=== PATIENT | male | born 1965 | race Caucasian/White ===

== ENCOUNTER 2016-07-08 14:13 | Inpatient (IN) ==
--- NOTE | 2016-07-07 21:11 | Discharge Summary ---
<Tabatha Dimas - Last Filed: 07/07/16 21:09> Date of Encounter: 07/07/16 - Discharge Diagnosis (1) Arthritis of right hip Priority: Primary Status: Acute (2) DMII (diabetes mellitus, type 2) Priority: Secondary Status: Chronic Qualifiers: Diabetes mellitus complication status: with unspecified complications Diabetes mellitus fci insulin use: unspecified fci insulin use status Qualified Code(s): E11.8 - Type 2 diabetes mellitus with unspecified complications - Discharge Medications Home Medications: Aspirin Enteric Coated [Aspirin EC] 325 mg PO DAILY #21 tablet.dr 07/07/16 [Rx] OxyCODONE Immed Rel [Roxicodone 5 MG] 5 - 10 mg PO Q6HR PRN #40 tablet 07/07/16 [Rx] Atorvastatin [Lipitor] 40 mg PO HS 07/08/16 [History] Celecoxib [Celebrex] 200 mg PO DAILY 07/08/16 [History] GlyBURIDE 5 mg PO BID 07/08/16 [History] Metformin HCl [Glucophage] 1,000 mg PO BID 07/08/16 [History] Tramadol HCl [Ultram] 50 mg PO Q6H PRN 07/08/16 [History] Allergies/Adverse Reactions: Allergies No Known Allergies Allergy (Verified 07/08/16 14:31) Primary care physician: Mary Mcleod CNP - Patient Status Disposition: Home, Self-Care Condition: Good - Discharge Instructions Follow Up With: Tico Venegas MD [Partnered Physician] - 08/06/16 8:25 am Tabatha Dimas PAC [Physician Gas Stove Servicer Helper] - 07/17/16 1:15 pm Mary Mcleod CNP [Primary Care Provider] - - Hospital Course Hospital course: Mr. Sampson is a 51 year old male - Time Spent with Patient Total time spent providing and/or coordinating discharge services: <Tico Venegas - Last Filed: 07/11/16 07:54> Date of Encounter: 07/11/16 Time of Encounter: 07:54 - Discharge Diagnosis (1) Arthritis of right hip Priority: Primary Status: Acute (2) DMII (diabetes mellitus, type 2) Priority: Secondary Status: Chronic Qualifiers: Diabetes mellitus complication status: with unspecified complications Diabetes mellitus fci insulin use: unspecified tile and marble installer insulin use status Qualified Code(s): E11.8 - Type 2 diabetes mellitus with unspecified complications Primary care physician: Mary Mcleod CNP - Patient Status Overall status at discharge: patient is progressing back to baseline - Hospital Course Hospital course: Mr. Sampson is a 51 year old male The patient had an uneventful postoperative course. They received antibiotics and physical therapy and were discharged in stable condition. There will follow -up in the office in 2 weeks. Aspirin DVT prophylaxis - Time Spent with Patient Total time spent providing and/or coordinating discharge services:
--- NOTE | 2016-07-08 14:31 | Anesthesia Evaluation PreOp ---
Date of Encounter: 07/08/16 Time of Encounter: 14:29 - Past History Planned Operation: Right Total Hip Arthroplasty Cardiac History: Hyperlipidemia Pulmonary History: Denies Any Significant HX C D STILL OPERATOR History: Denies Any Significant HX Other Medical History: Diabetes Type II Anesthesia History: Past Anesthesia (no prior surgery) Alcohol Use: occasionally Drug use: none Medications and Allergies Aspirin Enteric Coated [Aspirin EC] 325 mg PO DAILY #21 tablet. 07/07/16 [Rx] OxyCODONE Immed Rel [Roxicodone 5 MG] 5 - 10 mg PO Q6HR PRN #40 tablet 07/07/16 [Rx] Allergies No Known Allergies Allergy (Unverified 06/27/16 13:50) - Meds/Allergy Pre-op Review Medications Reviewed: Yes Allergies Reviewed: Yes Beta Blockers on Current Med List: No Anesthesia Results - Labs Laboratory Tests 06/27/16 06/27/16 06/27/16 14:00 14:00 14:00 WBC 8.4 Hgb 15.5 Hct 44.8 Plt Count 356 PT 11.3 INR 1.0 APTT 33.8 Sodium 138 Potassium 3.6 BUN 9 Creatinine 0.72 - Imaging EKG: report reviewed (06/27/2016 SR, marked LAD, moderate IV conduction delay) Anesthesia Exam O2 Sat Height 1.75 m Height 1.75 m Weight 102.058 kg Weight 102.058 kg O2 Sat by Pulse Oximetry 96 Vital Signs Temp Pulse Resp BP Pulse Ox 98.1 F 120 18 137/83 96 07/08/16 14:44 07/08/16 14:44 07/08/16 14:44 07/08/16 14:44 07/08/16 14:44 Blood glucose: 252 Height: 5'9'' Weight: 225 lbs NPO (# of Hours): 8 Pain Scale: 0 Pain Scale Used: Numeric (1 - 10) - HEENT Pupil (Motor): EOMI Mallampati: II Teeth: Normal (broken molars right upper and left lower) Oral Opening: Greater than 3 - C D STILL OPERATOR LOC: Oriented C D STILL OPERATOR Motor: Normal RUE, Normal LUE, Normal RLE, Normal LLE, Normal Face C D STILL OPERATOR Sensory: Normal: RUE, LUE, RLE, LLE, Face - Cardiac Rhythm: Regular Murmur: None - Pulmonary Breath Sounds: bilateral Clear Respiratory Effort: Symmetrical Anesthesia Assess/Plan ASA Score: 2 Modified Wells Scale for Level of Consciousness: Cooperative, oriented, and tranquil Anesthetic Plan: General Monitoring Plan: Standard Monitors Recovery Plan: PACU
[2016-07-08] MEDS ORDERED: CeFAZolin Pre 2,000 MG/100 ML 2,000 MG/100 ML BAG IVPB ONE (14:38)
[2016-07-08] MEDS ORDERED: Ringers Solution, Lactated 1,000 ML IVC SCH ×2 (14:45→15:00)
[2016-07-08] MEDS ORDERED: D5% in Water 1,000 ML IVC PRN ×2 (15:00→20:33)
[2016-07-08] MEDS ORDERED: Ondansetron 4 MG/2 ML VIAL IVP PRN ×3 (15:00→20:33)
[2016-07-08] MEDS ORDERED: MOM Conc 10 ML UD.LIQ PO PRN ×2 (15:00→20:33)
[2016-07-08] MEDS ORDERED: *HR* OxyCODONE Immed Rel 5 MG TABLET PO PRN ×3 (15:00→20:33)
[2016-07-08] MEDS ORDERED: *HR* Dextrose 50 % in Water (Syg) 50 ML SYRINGE IVP PRN ×2 (15:00→20:33)
[2016-07-08] MEDS ORDERED: Sennosides 8.6 MG TABLET PO PRN ×2 (15:00→20:33)
[2016-07-08] MEDS ORDERED: Temazepam 15 MG CAPSULE PO PRN ×2 (15:00→20:33)
[2016-07-08] MEDS ORDERED: Acetaminophen 325 MG TABLET PO PRN ×2 (15:00→20:33)
[2016-07-08] MEDS ORDERED: Naloxone 0.4 MG/ML INJ IVP PRN ×2 (15:00→20:33)
[2016-07-08] MEDS ORDERED: Dextrose Gel 15 GM PO PRN ×4 (15:00→20:33)
[2016-07-08] MEDS ORDERED: *HR* HYDROmorphone (PF) 1 MG/ML SYRINGE IVP PRN (15:00)
[2016-07-08] MEDS ORDERED: Insulin LISPRO 300 UNITS/3 ML VIAL SQ SCH (16:30)
[2016-07-08] MEDS ORDERED: Ascorbic Acid 500 MG TABLET PO SCH (17:00)
--- NOTE | 2016-07-08 17:20 | History & Physical Report ---
Date of Encounter: 07/08/16 Time of Encounter: 17:19 24 Hour HP Update - Instructions Instructions: If the History and Physical is less than 30 days old and was completed prior to A.M. admission and or procedure and has NOT been updated on calendar day of procedure please complete this update prior to performing procedure. - Update Patient reports changes in Medical Condition: No Changes in examination, assessment, or condition: No Changes in Medication: No Preop tests/diagnostics Reviewed: Yes Surgery Remains Indicated: Yes Consent for Planned Operative Procedure(s) Verified: Yes - Pre-Operative Checklist Preoperative Checklist Indicated: No Prophylactic Antibiotic Ordered: Yes Is VTE Prophylaxis Indicated?: Yes
[2016-07-08] MEDS ORDERED: Lidocaine -MPF 2% 2 ML VIAL ONE (18:01)
[2016-07-08] MEDS ORDERED: *HR* Midazolam HCl 2 MG/2 ML VIAL ONE ×2 (18:01)
[2016-07-08] MEDS ORDERED: *HR* Propofol 200 MG/20 ML VIAL IVP ONE ×2 (18:01→18:51)
[2016-07-08] MEDS ORDERED: *HR* FentaNYL (PF) 100 MCG/2 ML VIAL ONE (18:01)
[2016-07-08] MEDS ORDERED: Acetaminophen IV 1,000 MG/100 ML INFUS..BTL ONE (18:03)
[2016-07-08] MEDS ORDERED: *HR* Magnesium Sulfate 1 GM/2 ML VIAL ONE (18:13)
[2016-07-08] MEDS ORDERED: *HR* Promethazine 25 MG/ML VIAL IVP PRN (18:20)
[2016-07-08] MEDS ORDERED: *HR* Labetalol 100 MG/20 ML MDV IVP PRN (18:20)
--- NOTE | 2016-07-08 18:22 | Orthopedic Operative Note ---
Date of procedure: 07/08/16 Pre-op diagnosis: Right hip arthritis Post-op diagnosis: same (Leg length discrepancy right shorter than left, flexion contracture, external rotation contracture) Procedure: Procedure: Right Total Hip Replacment Estimated blood loss: 200 cc Hardware: Biomet DM Cup: 60 G7 fin cup Femoral size 12echo full profile lateralized stem Head: 6head with Migdalia Procedural Notes: Grade 4 arthritic changes femoral head acetabular socket flexion contracture 30 degrees external rotation contracture 30 degrees Operative procedure: The patient was brought to the operating room and placed on the operating room table. After general anesthesia was administered the patient was placed in the lateral decubitus position with the operative leg up. All pressure points were padded appropriately and the head was stabilized in the neutral position. The operative extremity was prepped and draped in the sterile surgical fashion patient received IV antibiotic prior to skin incision. A standard posterior approach is made to the operative hip, the incision was made through the skin and subcutaneous tissue hemostasis was obtained with Bovie cautery. Using careful sharp dissection the fascia was identified and incised exposing the external rotators. The external rotators were released off the greater trochanter and tagged with #2 FiberWire suture. The capsule was T'd open and the hip was brought into internal rotation. Patient noted to have grade 4 arthritic changes femoral head. The femoral neck cut was made at the appropriate level. An anterior capsulotomy was performed for the anterior retractor. Soft tissues removed from the acetabulum. Patient noted to have grade 4 arthritic changes acetabulum. Acetabulum was first reamed medially, and then reamed in 15 degrees of anteversion and 45 degrees off the horizontal. It was reamed up to the appropriate size 60. The appropriate-sized 60 acetabular cup was impacted in place in 15 degrees of anteversion and 45 degrees off the horizontal. This had good fit and fixation. The hip was brought back in to internal rotation and prepared with the mattress and boxsprings supervisor followed by the canal finder followed by broaching process in 20 degrees anteversion. It was broached up to the appropriate size 12. The femoral implant was impacted in place in 20 degrees of anteversion. Trial reduction found the hip to be stable with +6 head and Migdalia. The trials were removed and the real implants were impacted in place. The hip was reduced, patient had apparent equal leg lengths. The hip had excellent stability with forward flexion to 90 degrees adduction of 30 degrees and internal rotation of 60 degrees. The hip had no shuck. The hips after 2 minutes with a Betadine saline solution. It was irrigated out with 2 L of pulse irrigation. The external rotators were reattached to drill holes in the greater trochanter. Fascia was closed with a running #2 PDS suture. The deep tissue was irrigated and closed deep with #1 PDS suture superficially with 0 PDS suture and skin was closed with Dermabond and skin monty. The patient was placed in a sterile dressing and abduction pillow. The patient was extubated and transferred to the recovery room in stable condition. Anesthesia: JOHN Surgeon: Tico Venegas Dry House Tender: Tabatha Dimas Condition: stable Disposition: PACU
[2016-07-08] MEDS ORDERED: *HR* HYDROmorphone 2 MG/ML SYRINGE ONE (18:51)
[2016-07-08] MEDS ORDERED: Ketorolac 30 MG/ML VIAL ONE (18:51)
[2016-07-08] MEDS ORDERED: Dexamethasone 4 MG/ML VIAL ONE (18:51)
[2016-07-08] MEDS: *HR* HYDROmorphone (PF) 1 MG/ML SYRINGE IVP PRN ×2 (19:13→19:20)
--- NOTE | 2016-07-08 19:47 | Anesthesia Evaluation Post Op ---
Date of Encounter: 07/08/16 Time of Encounter: 19:30 - Vital Signs Vital Signs: Vital Signs/O2 Sat/Glucose, Most Current Temp Pulse Resp BP Pulse Ox 07/08/16 19:35 98.5 F 82 20 102/62 92 07/08/16 19:25 98.5 F 80 20 110/69 96 07/08/16 19:15 88 20 102/65 95 07/08/16 19:05 90 20 134/76 94 07/08/16 18:55 97.3 F L 90 20 146/79 94 - Lungs Lungs: Clear Ascult./Percussion - Airway Airway: Non-obstructed - Cardiovascular Regular Rate - Mental Status Mental Status: Alert & Oriented, Answers Appropriately - Pain Pain Scale: 1 - Nausea Vomiting Nausea Vomiting: Not Present - Hydration Hydration: Ice chips - Discharge PostOp Status: Transfer Patient to floor
[2016-07-08] MEDS ORDERED: *HR* Enoxaparin 30 MG/0.3 ML SYRINGE SQ SCH (20:00)
[2016-07-08 20:30] LABS: Hematocrit 43.6 % (37.5-50.1)
[2016-07-08] MEDS ORDERED: traMADol 50 MG TABLET PO PRN (20:33)
[2016-07-08] MEDS: *HR* Metformin 500 MG TABLET PO SCH (22:18)
[2016-07-08] MEDS: *HR* GlyBURIDE 5 MG TABLET PO SCH (22:18)
[2016-07-08] MEDS ORDERED: ceFAZolin 2,000 MG in D5% in Water 100 ML IVPB SCH (23:00)
[2016-07-09] MEDS ORDERED: ceFAZolin 2,000 MG in D5% in Water 100 ML IVPB SCH
[2016-07-09] MEDS: *HR* OxyCODONE Immed Rel 5 MG TABLET PO PRN ×4 (01:09→18:21)
[2016-07-09] MEDS: Famotidine 20 MG TABLET PO SCH ×3 (03:30→21:12)
[2016-07-09 05:08] LABS: Hematocrit 40.9 % (37.5-50.1); Hemoglobin 14.1 g/dL (12.9-16.9)
[2016-07-09] MEDS: *HR* Enoxaparin 30 MG/0.3 ML SYRINGE SQ SCH ×2 (06:12→16:58)
[2016-07-09 06:20] LABS: BUN/Creatinine Ratio 14 (6-26); Blood Urea Nitrogen 11 mg/dL (8-26); Calcium 9.7 mg/dL (8.6-10.8); Carbon Dioxide 21 mEq/L (19-29); Chloride 99 mEq/L (98-109); Glucose 292 mg/dL (70-99); Osmolality,Calculated 288 (280-300); Potassium 4.9 mEq/L (3.5-4.5); Sodium 134 mEq/L (136-145); eGFR For African Americans > 60 (> 60); eGFR For Non-African Americans > 60 (> 60)
--- NOTE | 2016-07-09 06:36 | Orthopedics Progress Note ---
Date of Encounter: 07/09/16 Time of Encounter: 06:35 - Assessment and Plan (1) Arthritis of right hip Current Visit: Yes Status: Acute (2) DMII (diabetes mellitus, type 2) Current Visit: Yes Status: Chronic Qualifiers: Diabetes mellitus complication status: with unspecified complications Diabetes mellitus watermelon harvesting supervisor insulin use: unspecified watermelon harvesting supervisor insulin use status Qualified Code(s): E11.8 - Type 2 diabetes mellitus with unspecified complications Subjective Interval history: Patient was seen this morning doing well without complaints. Afebrile vital signs stable. Operative extremity: Neurovascularly intact Dressing clean dry and intact Calves nontender Assessment and plan: Continue with postoperative care Hematocrit 40.9 Objective Vital signs: Vital Signs Temp Pulse Resp BP Pulse Ox 07/09/16 03:58 99.3 F 115 15 130/85 97 07/08/16 22:45 97.7 F 92 14 120/67 07/08/16 21:15 97.8 F 111 14 117/72 95 07/08/16 20:45 99.3 F 66 14 103/66 07/08/16 20:15 97.4 F L 100 14 114/77 95 07/08/16 19:45 98.5 F 90 20 120/64 95 07/08/16 19:35 98.5 F 82 20 102/62 92 07/08/16 19:25 98.5 F 80 20 110/69 96 07/08/16 19:15 88 20 102/65 95 07/08/16 19:05 90 20 134/76 94 07/08/16 18:55 97.3 F L 90 20 146/79 94 07/08/16 14:44 98.1 F 120 18 137/83 96 Intake and Output 07/08/16 07/08/16 07/09/16 15:59 23:59 07:59 Intake Total 240 / 240 Output Total 200 / 200 500 / 500 Balance 40 / 40 -500 / -500 Intake: Oral 240 / 240 Output: Urine 500 / 500 Estimated Blood Loss 200 / 200 Other: Weight 102.058 kg Blood Glucose* 252 261 - Labs CBC & BMP: 07/09/16 04:39 07/09/16 05:49 Labs: Abnormal lab results Sodium 134 mEq/L (136-145) L 07/09/16 05:49 Potassium 4.9 mEq/L (3.5-4.5) H 07/09/16 05:49 Glucose 292 mg/dL (70-99) H 07/09/16 05:49 POC Glucose 261 (58-89) H 07/08/16 21:05 - VTE Documentation of Mechanical Device: Venous foot pump, device Consult Discharge Plan - Plan Referrals: Mary Mcleod, GLOBAL MARKETING COORDINATOR [Primary Care Provider] -
[2016-07-09] MEDS: Ringers Solution, Lactated 1,000 ML IVC SCH ×2 (07:50→17:04)
[2016-07-09] MEDS: Insulin LISPRO 300 UNITS/3 ML VIAL SQ SCH ×3 (07:55→16:56)
[2016-07-09] MEDS ORDERED: ceFAZolin 2,000 MG in D5% in Water 100 ML IVPB ONE (08:00)
[2016-07-09] MEDS: *HR* GlyBURIDE 5 MG TABLET PO SCH ×2 (08:02→21:12)
[2016-07-09] MEDS: Multivit/Ca/Min/Fe/FA 1 TAB TABLET PO SCH (08:02)
[2016-07-09] MEDS: Celecoxib 200 MG CAPSULE PO SCH (08:02)
[2016-07-09] MEDS: Ascorbic Acid 500 MG TABLET PO SCH ×2 (08:03→16:56)
[2016-07-09] MEDS: *HR* Metformin 500 MG TABLET PO SCH ×2 (08:03→21:12)
[2016-07-09] MEDS ORDERED: *HR* OxyCODONE Immed Rel 5 MG TABLET PO PRN (08:18)
[2016-07-09] MEDS ORDERED: Multivit/Ca/Min/Fe/FA 1 TAB TABLET PO SCH (09:00)
[2016-07-09] MEDS: *HR* HYDROmorphone (PF) 1 MG/ML SYRINGE IVP PRN ×3 (11:35→21:18)
[2016-07-10] MEDS: *HR* OxyCODONE Immed Rel 5 MG TABLET PO PRN ×4 (03:13→22:20)
[2016-07-10] MEDS: Ringers Solution, Lactated 1,000 ML IVC SCH ×2 (05:26→11:39)
[2016-07-10] MEDS: *HR* Enoxaparin 30 MG/0.3 ML SYRINGE SQ SCH ×2 (05:30→17:19)
[2016-07-10 06:25] LABS: Hematocrit 33.2 % (37.5-50.1); Hemoglobin 11.3 g/dL (12.9-16.9)
[2016-07-10 06:42] LABS: BUN/Creatinine Ratio 14 (6-26); Blood Urea Nitrogen 10 mg/dL (8-26); Calcium 9.3 mg/dL (8.6-10.8); Carbon Dioxide 28 mEq/L (19-29); Chloride 99 mEq/L (98-109); Glucose 243 mg/dL (70-99); Osmolality,Calculated 287 (280-300); Potassium 4.2 mEq/L (3.5-4.5); Sodium 135 mEq/L (136-145); eGFR For African Americans > 60 (> 60); eGFR For Non-African Americans > 60 (> 60)
[2016-07-10] MEDS: *HR* Metformin 500 MG TABLET PO SCH ×2 (07:43→20:28)
[2016-07-10] MEDS: *HR* GlyBURIDE 5 MG TABLET PO SCH ×2 (07:43→20:28)
[2016-07-10] MEDS: Ascorbic Acid 500 MG TABLET PO SCH ×2 (07:44→15:57)
[2016-07-10] MEDS: Multivit/Ca/Min/Fe/FA 1 TAB TABLET PO SCH (07:44)
[2016-07-10] MEDS: Famotidine 20 MG TABLET PO SCH ×2 (07:44→20:28)
[2016-07-10] MEDS: Celecoxib 200 MG CAPSULE PO SCH (07:45)
[2016-07-10] MEDS: Insulin LISPRO 300 UNITS/3 ML VIAL SQ SCH ×3 (07:46→17:20)
--- NOTE | 2016-07-10 07:57 | Orthopedics Progress Note ---
Date of Encounter: 07/10/16 Time of Encounter: 07:57 - Assessment and Plan (1) Arthritis of right hip Current Visit: Yes Status: Acute (2) DMII (diabetes mellitus, type 2) Current Visit: Yes Status: Chronic Qualifiers: Diabetes mellitus complication status: with unspecified complications Diabetes mellitus terminal block assembler insulin use: unspecified terminal block assembler insulin use status Qualified Code(s): E11.8 - Type 2 diabetes mellitus with unspecified complications Subjective Interval history: Patient was seen this morning doing well without complaints. Afebrile vital signs stable. Operative extremity: Neurovascularly intact Dressing clean dry and intact Calves nontender Assessment and plan: Continue with postoperative care Hematocrit 33 Objective Vital signs: Vital Signs Temp Pulse Resp BP Pulse Ox 07/10/16 07:15 98.4 F 96 14 99/65 96 07/10/16 03:00 96 07/10/16 00:09 99.2 F 100 15 122/70 96 07/09/16 21:55 99.1 F 100 17 144/74 95 07/09/16 15:37 98.8 F 102 14 118/72 95 07/09/16 12:48 116/73 07/09/16 11:28 93 118/77 07/09/16 11:00 106 16 106/72 96 07/09/16 10:36 98.3 F 106 16 106/72 96 Intake and Output 07/09/16 07/09/16 07/10/16 15:59 23:59 07:59 Intake Total 1000 / 1000 200 / 200 Output Total 150 / 150 400 / 400 1100 / 1100 Balance 850 / 850 -400 / -400 -900 / -900 Intake: IV Fluids 1000 / 1000 Lactated Ringers 1,000 ML 1000 / 1000 @ 75 mls/hr IVC .[id number] [facility] Rx#:[id number] Oral 200 / 200 Output: Urine 150 / 150 400 / 400 1100 / 1100 Other: Blood Glucose* 211 237 244 - Labs CBC & BMP: 07/10/16 06:00 07/10/16 06:00 Labs: Abnormal lab results Hgb 11.3 g/dL (12.9-16.9) L D 07/10/16 06:00 Hct 33.2 % (37.5-50.1) L 07/10/16 06:00 Sodium 135 mEq/L (136-145) L 07/10/16 06:00 Creatinine 0.71 mg/dL (0.72-1.25) L 07/10/16 06:00 Glucose 243 mg/dL (70-99) H 07/10/16 06:00 POC Glucose 220 (58-89) H 07/09/16 16:41 - VTE Documentation of Mechanical Device: Venous foot pump, device Consult Discharge Plan - Plan Referrals: Tico Venegas MD [Partnered Physician] - 08/06/16 8:25 am Tabatha Dimas, PAC [Physician Mortgage Loan Computation Clerk] - 07/17/16 1:15 pm Mary Mcleod PRINT LINE SUPERVISOR [Primary Care Provider] -
[2016-07-11] MEDS: *HR* Enoxaparin 30 MG/0.3 ML SYRINGE SQ SCH (06:21)
[2016-07-11 07:22] VITALS: BP 130/83
--- NOTE | 2016-07-11 07:55 | Orthopedics Progress Note ---
Date of Encounter: 07/11/16 Time of Encounter: 07:54 - Assessment and Plan (1) Arthritis of right hip Current Visit: Yes Status: Acute (2) DMII (diabetes mellitus, type 2) Current Visit: Yes Status: Chronic Qualifiers: Diabetes mellitus complication status: with unspecified complications Diabetes mellitus intermediate card tender insulin use: unspecified intermediate card tender insulin use status Qualified Code(s): E11.8 - Type 2 diabetes mellitus with unspecified complications Subjective Interval history: Patient was seen this morning doing well without complaints. Afebrile vital signs stable. Operative extremity: Neurovascularly intact Dressing clean dry and intact Calves nontender Assessment and plan: Continue with postoperative care Discharged today Objective Vital signs: Vital Signs Temp Pulse Resp BP Pulse Ox 07/11/16 07:16 99.1 F 97 18 130/83 97 07/11/16 03:59 98.2 F 93 16 113/63 95 07/10/16 23:57 99.3 F 101 16 127/79 93 07/10/16 19:03 99.1 F 106 17 107/63 96 07/10/16 10:44 98.3 F 102 16 110/66 95 Intake and Output 07/10/16 07/10/16 07/11/16 15:59 23:59 07:59 Intake Total 240 / 240 120 / 120 Output Total 250 / 250 1025 / 1025 500 / 500 Balance -10 / -10 -905 / -905 -500 / -500 Intake: Oral 240 / 240 120 / 120 Output: Urine 250 / 250 1025 / 1025 500 / 500 Other: Meal Lunch Dinner Percent of Meal Consumed 95% 50% # Voids 1 Weight 103.561 kg Blood Glucose* 263 248 264 Patient Weight 07/11/16 23:59 Weight 103.561 kg - Labs CBC & BMP: 07/10/16 06:00 07/10/16 06:00 Labs: Abnormal lab results Hgb 11.3 g/dL (12.9-16.9) L D 07/10/16 06:00 Hct 33.2 % (37.5-50.1) L 07/10/16 06:00 Sodium 135 mEq/L (136-145) L 07/10/16 06:00 Creatinine 0.71 mg/dL (0.72-1.25) L 07/10/16 06:00 Glucose 243 mg/dL (70-99) H 07/10/16 06:00 POC Glucose 248 (58-89) H 07/10/16 19:14 - VTE Documentation of Mechanical Device: Venous foot pump, device Consult Discharge Plan - Plan Referrals: Tico Venegas MD [Partnered Physician] - 08/06/16 8:25 am Tabatha Dimas, PAC [Physician Correctional Case Manager] - 07/17/16 1:15 pm Mary Mcleod CNP [Primary Care Provider] -
[2016-07-11] MEDS: Insulin LISPRO 300 UNITS/3 ML VIAL SQ SCH ×2 (08:07→11:54)
[2016-07-11] MEDS: *HR* Metformin 500 MG TABLET PO SCH (08:08)
[2016-07-11] MEDS: Famotidine 20 MG TABLET PO SCH (08:09)
[2016-07-11] MEDS: *HR* GlyBURIDE 5 MG TABLET PO SCH (08:09)
[2016-07-11] MEDS: Multivit/Ca/Min/Fe/FA 1 TAB TABLET PO SCH (08:09)
[2016-07-11] MEDS: Ascorbic Acid 500 MG TABLET PO SCH (08:09)
[2016-07-11] MEDS: Celecoxib 200 MG CAPSULE PO SCH (08:09)
[2016-07-11] MEDS: *HR* HYDROmorphone (PF) 1 MG/ML SYRINGE IVP PRN (08:18)
[2016-07-11] MEDS: *HR* OxyCODONE Immed Rel 5 MG TABLET PO PRN (10:03)
== END 2016-07-11 12:00 | disposition home or self-care (01) | DRG 470 ==
LOC: SAMDAY 14:13 → 3NENU 20:05 → 3BNU 07-10 16:32
PROVIDERS: ADMIT Orthopaedic Surgery; ATTEND Orthopaedic Surgery

== ENCOUNTER 2018-10-26 08:39 | Observation (INO) ==
[~2018-10-26 08:39] MED LIST: Bacitracin 50,000 UNIT, Polymyxin B Sulfate 500,000 UNIT, Sodium Chloride IRRigation 1,... IR ONE
[2018-10-26] MEDS ORDERED: CeFAZolin Syr 2,000MG/20 ML 2,000 MG/20 ML SYRINGE IVPB ONE (09:09)
[2018-10-26 09:13] LABS: Basophils # 0.2 K/mcL (0.0-0.2); Basophils % 1.8 %; Eosinophils # 0.2 K/mcL (0.0-0.6); Eosinophils % 2.6 %; Hemoglobin 19.2 g/dL (12.9-16.9); Immature Granulocytes % 0.8 % (0-4); Lymphocytes # 1.3 K/mcL (0.6-4.6); Lymphocytes % 15.1 %; Mean Corpuscular HGB Conc 33.6 g/dL (31.6-35.5); Mean Corpuscular Volume 92.3 fL (83.0-100.0); Monocytes # 0.7 K/mcL (0.0-1.3); Monocytes % 8.3 %; Neutrophils # 6.2 K/mcL (1.6-8.9); Platelet Count 397 K/mcL (140-400); Red Cell Distribution Width 12.6 % (11.5-14.5); Segmented Neutrophils % 71.4 %; White Blood Count 8.7 K/mcL (4.3-11.1)
[2018-10-26] MEDS ORDERED: Ringers Solution, Lactated 1,000 ML IVC SCH (09:15)
[2018-10-26 09:16] LABS: Hematocrit 57.2 % (37.5-50.1)
[2018-10-26] MEDS ORDERED: Scopolamine Patch 1.5 MG PATCH.TD72 TD ONE (09:31)
[2018-10-26] MEDS ORDERED: *HR* Promethazine 25 MG/ML VIAL IVP PRN (09:31)
[2018-10-26] MEDS ORDERED: *HR* OxyCODONE Immed Rel 5 MG TABLET PO PRN (09:31)
[2018-10-26] MEDS ORDERED: Albuterol 2.5 MG/3 ML NEBULIZER IH ONE (09:31)
[2018-10-26] MEDS ORDERED: Gabapentin 300 MG CAPSULE PO ONE (09:31)
[2018-10-26] MEDS ORDERED: *HR* HYDROmorphone (PF) 1 MG/ML SYRINGE IVP PRN (09:31)
[2018-10-26] MEDS ORDERED: *HR* Labetalol 20 MG/4 ML SYRINGE IVP PRN (09:31)
[2018-10-26] MEDS ORDERED: Ondansetron 4 MG/2 ML VIAL IVP ONE (09:31)
[2018-10-26] MEDS ORDERED: Ketorolac 30 MG/ML VIAL IVP ONE (09:31)
[2018-10-26] MEDS ORDERED: cloNIDine HCl 0.1 MG TABLET PO ONE (09:33)
[2018-10-26] MEDS ORDERED: Acetaminophen IV 1,000 MG/100 ML INFUS..BTL IVPB ONE (09:33)
[2018-10-26] MEDS ORDERED: *HR* Propofol 200 MG/20 ML VIAL IVP ONE (09:58)
[2018-10-26] MEDS ORDERED: Lidocaine -MPF 2% 2 ML VIAL ONE (10:02)
[2018-10-26] MEDS ORDERED: *HR* Midazolam HCl 2 MG/2 ML VIAL ONE (10:40)
[2018-10-26] MEDS ORDERED: *HR* FentaNYL (PF) 100 MCG/2 ML VIAL ONE ×3 (10:41→12:42)
[2018-10-26] MEDS ORDERED: *HR* HYDROMORPHONE 2 MG/ML VIAL ONE (13:58)
[2018-10-26] MEDS ORDERED: Naloxone 0.4 MG/ML INJ IVP PRN (15:15)
[2018-10-26] MEDS ORDERED: Ondansetron 4 MG/2 ML VIAL IVP PRN (15:15)
[2018-10-26] MEDS ORDERED: Ergocalciferol (VIT D2) 50,000 UNIT (1.25MG) CAP PO SCH (15:15)
[2018-10-26] MEDS ORDERED: Acetaminophen 325 MG TABLET PO PRN (15:15)
[2018-10-26] MEDS ORDERED: Dextrose Gel 15 GM/37.5 ML TUBE PO PRN ×2 (16:59)
[2018-10-26] MEDS ORDERED: D5% in Water 1,000 ML IVC PRN (16:59)
[2018-10-26] MEDS ORDERED: *HR* Dextrose 50 % in Water (Syg) 50 ML SYRINGE IVP PRN (16:59)
[2018-10-26] MEDS: *HR* OxyCODONE Immed Rel 5 MG TABLET PO PRN ×2 (18:05→22:22)
[2018-10-26] MEDS: Insulin LISPRO 300 UNITS/3 ML VIAL SQ SCH ×2 (18:05→21:36)
[2018-10-26] MEDS: *HR* Metformin 500 MG TABLET PO SCH (20:08)
[2018-10-26] MEDS: *HR* HYDROcodone/Acet 5/325 mg TABLET PO PRN (20:08)
[2018-10-26] MEDS: Ringers Solution, Lactated 1,000 ML IVC SCH (20:10)
[2018-10-27] MEDS ORDERED: *HR* OxyCODONE Immed Rel 5 MG TABLET PO ONE ×2 (01:40)
[2018-10-27] MEDS: *HR* OxyCODONE Immed Rel 5 MG TABLET PO PRN ×4 (02:17→20:28)
[2018-10-27] MEDS: *HR* HYDROcodone/Acet 5/325 mg TABLET PO PRN ×2 (05:29→22:27)
[2018-10-27] MEDS: Insulin LISPRO 300 UNITS/3 ML VIAL SQ SCH ×4 (07:29→20:48)
[2018-10-27] MEDS: Multivit/Ca/Min/Fe/FA 1 TAB TABLET PO SCH (08:52)
[2018-10-27] MEDS: *HR* Metformin 500 MG TABLET PO SCH ×2 (08:52→20:29)
[2018-10-27] MEDS: GlipiZIDE 5 MG TABLET PO SCH (08:53)
[2018-10-27] MEDS: LINAGLIPTIN PO SCH (09:02)
[2018-10-27] MEDS: EMPAGLIFLOZIN PO SCH (09:02)
[2018-10-27] MEDS: Ringers Solution, Lactated 1,000 ML IVC SCH (15:45)
[2018-10-28] MEDS: *HR* OxyCODONE Immed Rel 5 MG TABLET PO PRN ×4 (02:54→20:45)
[2018-10-28] MEDS: *HR* HYDROcodone/Acet 5/325 mg TABLET PO PRN ×2 (06:10→22:54)
[2018-10-28] MEDS: LINAGLIPTIN PO SCH (08:40)
[2018-10-28] MEDS: EMPAGLIFLOZIN PO SCH (08:40)
[2018-10-28] MEDS: Insulin LISPRO 300 UNITS/3 ML VIAL SQ SCH ×4 (08:40→21:28)
[2018-10-28] MEDS: Multivit/Ca/Min/Fe/FA 1 TAB TABLET PO SCH (08:46)
[2018-10-28] MEDS: GlipiZIDE 5 MG TABLET PO SCH (08:46)
[2018-10-28] MEDS: *HR* Metformin 500 MG TABLET PO SCH ×2 (08:47→20:46)
[2018-10-29] MEDS: *HR* OxyCODONE Immed Rel 5 MG TABLET PO PRN ×5 (03:58→20:35)
[2018-10-29] MEDS: Insulin LISPRO 300 UNITS/3 ML VIAL SQ SCH ×4 (07:36→19:54)
[2018-10-29] MEDS: LINAGLIPTIN PO SCH (07:40)
[2018-10-29] MEDS: EMPAGLIFLOZIN PO SCH (07:40)
[2018-10-29] MEDS: Multivit/Ca/Min/Fe/FA 1 TAB TABLET PO SCH (07:42)
[2018-10-29] MEDS: *HR* Metformin 500 MG TABLET PO SCH ×2 (07:42→19:52)
[2018-10-29] MEDS: GlipiZIDE 5 MG TABLET PO SCH (07:43)
[2018-10-30] MEDS: *HR* OxyCODONE Immed Rel 5 MG TABLET PO PRN ×4 (00:21→12:38)
[2018-10-30] MEDS: Insulin LISPRO 300 UNITS/3 ML VIAL SQ SCH ×2 (08:10→12:38)
[2018-10-30] MEDS: GlipiZIDE 5 MG TABLET PO SCH (08:11)
[2018-10-30] MEDS: *HR* Metformin 500 MG TABLET PO SCH (08:11)
[2018-10-30] MEDS: Multivit/Ca/Min/Fe/FA 1 TAB TABLET PO SCH (08:11)
[2018-10-30] MEDS: EMPAGLIFLOZIN PO SCH (08:40)
[2018-10-30] MEDS: LINAGLIPTIN PO SCH (08:40)
[2018-10-30 12:25] VITALS: BP 145/65
== END 2018-10-30 13:25 ==
LOC: 3NENU 08:39 → SAMDAY 08:39 → 3NENU 16:55
PROVIDERS: ADMIT Orthopaedic Surgery Orthopaedic Surgery of the Spine; ATTEND Orthopaedic Surgery Orthopaedic Surgery of the Spine

== ENCOUNTER 2019-01-14 18:55 | Observation (INO) ==
[2019-01-14] MEDS ORDERED: 0.9 % Sodium Chloride 1,000 ML IVC ONE (21:17)
[2019-01-14 21:27] LABS: Bilirubin,Urine Negative (Negative); Blood,Urine Moderate (Negative); Clarity,Urine Cloudy (Clear); Color,Urine Yellow (Yellow); Glucose,Urine (UA) >=1000 mg/dL (Normal); Ketones,Urine Negative (Negative); Leukocyte Esterase,Urine Moderate (Negative); Nitrite,Urine Positive (Negative); Protein,Urine Negative (Neg-Trace); Specific Gravity,Urine 1.017 (1.010-1.025); Urobilinogen,Urine Normal (Normal)
[2019-01-14 21:29] LABS: Bacteria,Urine Many per hpf (None-Few); Basophils # 0.1 K/mcL (0.0-0.2); Basophils % 0.7 %; Eosinophils # 0.2 K/mcL (0.0-0.6); Eosinophils % 1.6 %; Hematocrit 45.2 % (37.5-50.1); Hemoglobin 15.6 g/dL (12.9-16.9); Hyaline Casts,Urine None Seen per lpf (None-Few); Immature Granulocytes % 0.5 % (0-4); Lymphocytes # 1.4 K/mcL (0.6-4.6); Lymphocytes % 12.7 %; Mean Corpuscular HGB Conc 34.5 g/dL (31.6-35.5); Mean Corpuscular Hemoglobin 30.1 pg (28.0-33.3); Mean Corpuscular Volume 87.1 fL (83.0-100.0); Mean Platelet Volume 9.5 fL (9.4-12.4); Monocytes # 0.6 K/mcL (0.0-1.3); Monocytes % 5.4 %; Platelet Count 397 K/mcL (140-400); Red Blood Count 5.19 M/mcL (4.19-5.50); Red Cell Distribution Width 13.1 % (11.5-14.5); Segmented Neutrophils % 79.1 %; Squamous Epithelial Cell,Urine None Seen per lpf (None-Few); WBC,Urine 50-100 per hpf (0-3); White Blood Count 11.4 K/mcL (4.3-11.1)
[2019-01-14 21:40] LABS: Alanine Aminotransferase 16 Units/L (7-52); Albumin 4.3 g/dL (3.5-5.7); Albumin/Globulin Ratio 1.4 (1.1-2.2); Alkaline Phosphatase 86 Units/L (34-104); Aspartate Amino Transferase 17 Units/L (13-39); BUN/Creatinine Ratio 21 (6-26); Bilirubin,Direct 0.1 mg/dL (0.0-0.2); Bilirubin,Indirect 0.5 mg/dL (0.0-1.0); Bilirubin,Total 0.6 mg/dL (0.3-1.0); Blood Urea Nitrogen 13 mg/dL (6-20); Calcium 9.9 mg/dL (8.6-10.3); Carbon Dioxide 28 mEq/L (23-29); Chloride 97 mEq/L (98-107); Globulin 3.1 g/dL (2.4-3.5); Glucose 193 mg/dL (70-105); Lipase 12 Units/L (11-82); Osmolality,Calculated 283 (280-300); Potassium 3.8 mEq/L (3.5-5.1); Sodium 134 mEq/L (136-145); Total Protein 7.4 g/dL (6.4-8.9); Troponin I < 0.03 ng/mL (< 0.04); eGFR For African Americans > 60 (> 60); eGFR For Non-African Americans > 60 (> 60)
[2019-01-14] MEDS ORDERED: cefTRIAXone 1,000 MG in Water for inj. (sterile) 10 ML IVP ONE (21:48)
[2019-01-15] MEDS ORDERED: traMADol 50 MG TABLET PO PRN (01:29)
[2019-01-15] MEDS ORDERED: Acetaminophen 325 MG TABLET PO PRN (01:29)
[2019-01-15] MEDS ORDERED: Dextrose Gel 15 GM/37.5 ML TUBE PO PRN ×2 (01:29)
[2019-01-15] MEDS ORDERED: *HR* Dextrose 50 % in Water (Syg) 50 ML SYRINGE IVP PRN (01:29)
[2019-01-15] MEDS: Ringers Solution, Lactated 1,000 ML IVC SCH ×2 (02:32→10:06)
[2019-01-15] MEDS: Insulin LISPRO 300 UNITS/3 ML VIAL SQ SCH ×3 (07:48→18:05)
[2019-01-15] MEDS ORDERED: Multivit/Ca/Min/Fe/FA 1 TAB TABLET PO SCH (09:00)
[2019-01-15] MEDS ORDERED: levoFLOXacin 500 MG/100 ML 500 MG/100 ML BAG IVPB SCH (09:00)
[2019-01-15] MEDS ORDERED: cefTRIAXone 1,000 MG in Water for inj. (sterile) 10 ML IVP SCH (09:00)
[2019-01-15] MEDS ORDERED: Insulin LISPRO 300 UNITS/3 ML VIAL SQ SCH (21:00)
[2019-01-16 05:59] LABS: Basophils # 0.1 K/mcL (0.0-0.2); Basophils % 0.8 %; Eosinophils # 0.3 K/mcL (0.0-0.6); Eosinophils % 3.6 %; Hematocrit 43.2 % (37.5-50.1); Hemoglobin 14.6 g/dL (12.9-16.9); Immature Granulocytes % 0.5 % (0-4); Lymphocytes # 1.2 K/mcL (0.6-4.6); Lymphocytes % 15.4 %; Mean Corpuscular HGB Conc 33.8 g/dL (31.6-35.5); Mean Corpuscular Hemoglobin 30.7 pg (28.0-33.3); Mean Corpuscular Volume 90.8 fL (83.0-100.0); Mean Platelet Volume 9.1 fL (9.4-12.4); Monocytes # 0.7 K/mcL (0.0-1.3); Monocytes % 9.4 %; Neutrophils # 5.3 K/mcL (1.6-8.9); Platelet Count 333 K/mcL (140-400); Red Blood Count 4.76 M/mcL (4.19-5.50); Red Cell Distribution Width 12.8 % (11.5-14.5); Segmented Neutrophils % 70.3 %; White Blood Count 7.5 K/mcL (4.3-11.1)
[2019-01-16 06:26] LABS: BUN/Creatinine Ratio 25 (6-26); Blood Urea Nitrogen 11 mg/dL (6-20); Calcium 9.4 mg/dL (8.6-10.3); Carbon Dioxide 26 mEq/L (23-29); Chloride 100 mEq/L (98-107); Glucose 220 mg/dL (70-105); Magnesium 1.6 mg/dL (1.6-2.6); Osmolality,Calculated 292 (280-300); Phosphorous 3.8 mg/dL (2.7-4.5); Potassium 3.9 mEq/L (3.5-5.1); Sodium 138 mEq/L (136-145); eGFR For African Americans > 60 (> 60); eGFR For Non-African Americans > 60 (> 60)
[2019-01-16 06:56] VITALS: BP 132/64
== END 2019-01-16 11:58 | disposition home or self-care (01) ==
LOC: EMEROOARM 18:55 → 3ANU 18:55
PROVIDERS: ADMIT Internal Medicine; ATTEND Internal Medicine